=== PATIENT | male | born 1995 | race Two or more races ===

== ENCOUNTER 2020-03-23 23:03 | Emergency (ER) | payer MEDICAID ==
[~2020-03-23] VITALS: Ht 172.7 cm; Wt 79.0 kg
[2020-03-23] MEDS ORDERED: SODIUM CHLORIDE 0.9% 1,000 ML IV ONE (23:28)
[2020-03-23] MEDS ORDERED: TETANUS, DIPHTHERIA, PERTUSSIS VAC/PF 0.5ML (>7YR OLD) IM ONE (23:45)
[2020-03-23] MEDS ORDERED: LORAZEPAM 2MG/ML CPJ IM ONE (23:45)
[2020-03-23] MEDS ORDERED: BACITRACIN ZINC OINT UDPKT TOP ONE (23:45)
[2020-03-23] MEDS ORDERED: LIDOCAINE 1%/EPI 1:100,000 10 ML VIAL IJ ONE (23:45)
[2020-03-24] MEDS ORDERED: LIDOCAINE HCL/EPINEPHRINE 1%-EPI 1:100,000 20 ML VIAL INFIL NR (00:15)
[2020-03-24 00:29] LABS: BASOPHILS % 0.3 % (0.0-2.0); EOSINOPHILS % 0.4 % (0.0-5.0); HEMATOCRIT. 46.5 % (42.0-52.0); HEMOGLOBIN. 16.2 g/dL (14.0-18.0); LYMPHOCYTES % 18.1 % (20.0-50.0); MEAN CORPUSCULAR HEMOGLOBIN 31.2 pg (28.0-32.0); MEAN PLATELET VOLUME 8.9 fl (7.4-10.4); MONOCYTES % 5.9 % (2.0-8.0); NEUTROPHILS % 75.3 % (40.0-76.0); PLATELET 182 x1000/uL (130-400); RED BLOOD CELL COUNT 5.17 mill/uL (4.7-6.1); RED CELL DISTRIBUTION WIDTH 12.7 % (11.6-14.6)
[2020-03-24 00:34] LABS: CHLORIDE 106 mEq/L (98-107)
[2020-03-24 00:37] LABS: ETHANOL BLOOD < 10 mg/dL
[2020-03-24 00:40] LABS: CREATINE KINASE 507 IU/L (39-308)
[2020-03-24 05:54] VITALS: BP 126/70
== END 2020-03-24 05:58 | disposition home or self-care (01) ==
LOC: EDBD 23:03 → ER 23:03
DX: S01.81XA Laceration without foreign body of other part of head, initial encounter (principal); S16.1XXA Strain of muscle, fascia and tendon at neck level, initial encounter; R41.82 Altered mental status, unspecified; S80.02XA Contusion of left knee, initial encounter; S20.219A Contusion of unspecified front wall of thorax, initial encounter; Y04.2XXA Assault by strike against or bumped into by another person, initial encounter; Y93.89 Activity, other specified; Y92.89 Other specified places as the place of occurrence of the external cause; Z78.1 Physical restraint status
CPT/HCPCS: 36415; 70486; 71045; 72125; 73562; 80053; 80320; 82550; 85025; 90471; 90715; 93005; 96360; 96372; 99285; J2060; J3490; J7030; G0480

== ENCOUNTER 2020-03-30 09:25 | Emergency (ER) | payer MEDICAID ==
[~2020-03-30] VITALS: Ht 172.7 cm; Wt 75.0 kg
[2020-03-30 09:51] VITALS: BP 114/45
== END 2020-03-30 10:10 | disposition home or self-care (01) ==
LOC: ER 09:25
DX: S00.511D Abrasion of lip, subsequent encounter (principal); F12.10 Cannabis abuse, uncomplicated; X58.XXXD Exposure to other specified factors, subsequent encounter; Z48.02 Encounter for removal of sutures
CPT/HCPCS: 99281